=== PATIENT | female | born 1990 | race Caucasian/White ===

== ENCOUNTER 2023-01-28 11:56 | Emergency (ER) | payer MEDICAID ==
[2023-01-28] MEDS ORDERED: Ketorolac 30 MG/ML SDV ONE (12:26)
[2023-01-28] MEDS: Ketorolac 30 MG/ML SDV IM ONE ×2 (12:29→12:30)
[2023-01-28] MEDS: Acetaminophen 500 MG Tab PO ONE (12:29)
[2023-01-28] MEDS: Oxymetazoline 0.05% Nasal Spray 30 ML Bottle NAS ONE (12:31)
== END 2023-01-28 12:41 | disposition home or self-care (01) ==
LOC: DL.ED 11:56
DX: J06.9 Acute upper respiratory infection, unspecified (principal); Z88.5 Allergy status to narcotic agent
CPT/HCPCS: 96372; 99282; 99283; A9270; J1885